=== PATIENT | male | born 1995 | race African-American/Black ===

== ENCOUNTER 2024-04-28 14:52 | Inpatient (IN) | payer OTHER ==
[~2024-04-28 14:52] MED LIST: Iopamidol-370 76% 500 ML MDV (1 ML CHARGE) ONE
[2024-04-28 16:09] LABS: Hematocrit 43.3 % (42.0-52.0); Mean Corpuscular HGB CONC 34.6 g/dL (32.0-36.0); Mean Corpuscular Hemoglobin 31.5 pg (27.0-31.0); Platelet Count 183 10x3/uL (130-400); RBC Distribution Width 13.8 % (11.5-14.5); Red Blood Cell (RBC) Count 4.76 mill/uL (4.70-6.10)
[2024-04-28 16:16] LABS: ALT (SGPT) 7 U/L (8-55); AST (SGOT) 14 U/L (5-34); Albumin 4.6 g/dL (3.5-5.0); Alkaline Phosphatase 68 U/L (40-110); Anion Gap 15 mmol/L (10-20); BUN (Urea Nitrogen) 8 mg/dL (8.9-20.6); Bilirubin, Total 1.5 mg/dL (0.2-1.2); Calc. Creatinine Clearance 0 mL/min (70-130); Calcium 9.8 mg/dL (7.8-10.44); Carbon Dioxide 25 mmol/L (22-29); Chloride 105 mmol/L (98-107); Estimated GFR 121; Globulin 3.5 g/dL (2.4-3.5); Glucose 90 mg/dL (70-105); Lipase 17 U/L (8-78); Potassium 4.5 mmol/L (3.5-5.1); Protein, Total 8.1 g/dL (6.0-8.3); Sodium 140 mmol/L (136-145)
[2024-04-28 16:46] LABS: Band 4 % (5-11); Lymphocytes 3 % (21-51); Monocytes 4 % (0-10); Neutrophil 88 % (42-75); Ovalocytes SLIGHT = 2-5 cells HPF (0-1); Platelet Adequacy Comment Platelets Normal; Reactive Lymphocytes 1 % (0-10); Target Cells SLIGHT = 2-5 cells HPF (0-1)
[2024-04-28] MEDS ORDERED: Acetaminophen 500 MG TAB ONE (17:12)
[2024-04-28] MEDS ORDERED: Ketorolac Tromethamine 30 MG (1 mL) VIAL ONE (17:12)
[2024-04-28] MEDS ORDERED: Ondansetron ODT 4 MG TAB ONE (17:13)
[2024-04-28 17:37] LABS: Troponin I Less than 0.010 ng/mL (< 0.028)
[2024-04-28] MEDS ORDERED: Acetaminophen 325 MG TAB PO PRN (20:22)
[2024-04-28] MEDS ORDERED: Ondansetron PF 4 MG/2 ML Vial IVP PRN (20:22)
[2024-04-28] MEDS ORDERED: Glucagon 1 MG/ML KIT IM PRN (20:22)
[2024-04-28] MEDS ORDERED: Dextrose 50% Abboject 50 ML SYRINGE SLOW IVP PRN (20:22)
[2024-04-28] MEDS ORDERED: Dextrose 5% in Water 1,000 ML IV PRN (20:22)
[2024-04-28] MEDS ORDERED: Sodium Chloride 0.9% 100 ML ONE (21:06)
[2024-04-28] MEDS ORDERED: Piperacillin/Tazobactam 4.5 GM VIAL ONE (21:06)
[2024-04-28] MEDS ORDERED: Piperacillin/Tazobactam 2.25 GM in Sodium Chloride 0.9% 100 ML IVPB SCH (22:00)
[2024-04-28] MEDS: Sodium Chloride 0.9% 1,000 ML IV SCH (22:02)
[2024-04-29] MEDS ORDERED: FLU (Fluarix Triv) TS24-25(6MOS UP)/PF 45 MCG/0.5 ML Syringe IM ONE (00:30)
[2024-04-29] MEDS: Piperacillin/Tazobactam 3.375 GM in Sodium Chloride 0.9% 100 ML IVPB SCH (02:07)
[2024-04-29 05:10] LABS: #Basophils 0.07 10x3/uL (0.0-0.2); %Basophils 0.7 % (0.0-1.0); %Eosinophils 0.9 % (0.0-10.0); %Lymphocytes 15.8 % (21.0-51.0); %Monocytes 8.3 % (0.0-10.0); Hematocrit 41.1 % (42.0-52.0); Hemoglobin 13.5 g/dL (14.0-18.0); Mean Corpuscular HGB CONC 32.8 g/dL (32.0-36.0); Mean Corpuscular Hemoglobin 31.4 pg (27.0-31.0); Mean Corpuscular Volume 95.6 fL (78.0-98.0); Mean Platelet Volume 13.7 fL (7.4-10.4); Platelet Count 163 10x3/uL (130-400); RBC Distribution Width 14.5 % (11.5-14.5)
[2024-04-29 05:25] LABS: ALT (SGPT) 6 U/L (8-55); AST (SGOT) 11 U/L (5-34); Albumin 3.6 g/dL (3.5-5.0); Alkaline Phosphatase 55 U/L (40-110); Anion Gap 10 mmol/L (10-20); BUN (Urea Nitrogen) 11 mg/dL (8.9-20.6); Bilirubin, Total 1.6 mg/dL (0.2-1.2); Calc. Creatinine Clearance 116 mL/min (70-130); Calcium 8.9 mg/dL (7.8-10.44); Carbon Dioxide 27 mmol/L (22-29); Chloride 109 mmol/L (98-107); Estimated GFR 120; Glucose 88 mg/dL (70-105); Potassium 3.9 mmol/L (3.5-5.1); Protein, Total 6.6 g/dL (6.0-8.3); Sodium 142 mmol/L (136-145)
[2024-04-30 05:23] LABS: #Basophils 0.06 10x3/uL (0.0-0.2); %Basophils 0.8 % (0.0-1.0); %Eosinophils 1.9 % (0.0-10.0); %Lymphocytes 29.7 % (21.0-51.0); %Neutrophils 59.3 % (42.0-75.0); Hematocrit 39.4 % (42.0-52.0); Mean Corpuscular Hemoglobin 31.1 pg (27.0-31.0); Mean Corpuscular Volume 94.3 fL (78.0-98.0); Mean Platelet Volume 13.5 fL (7.4-10.4); Platelet Count 153 10x3/uL (130-400); RBC Distribution Width 14.3 % (11.5-14.5); Red Blood Cell (RBC) Count 4.18 mill/uL (4.70-6.10)
[2024-04-30 05:26] LABS: ALT (SGPT) 5 U/L (8-55); AST (SGOT) 11 U/L (5-34); Albumin 3.5 g/dL (3.5-5.0); Alkaline Phosphatase 48 U/L (40-110); Anion Gap 11 mmol/L (10-20); BUN (Urea Nitrogen) 7 mg/dL (8.9-20.6); Bilirubin, Total 2.3 mg/dL (0.2-1.2); Calc. Creatinine Clearance 97 mL/min (70-130); Calcium 8.6 mg/dL (7.8-10.44); Carbon Dioxide 26 mmol/L (22-29); Chloride 108 mmol/L (98-107); Estimated GFR 99; Globulin 2.9 g/dL (2.4-3.5); Glucose 76 mg/dL (70-105); Potassium 3.8 mmol/L (3.5-5.1); Protein, Total 6.4 g/dL (6.0-8.3); Sodium 141 mmol/L (136-145)
[2024-04-30 08:30] VITALS: BMI 25.3
[2024-04-30] MEDS ORDERED: EPINEPHrine 1 MG/ML VIAL ONE (13:03)
[2024-04-30] MEDS ORDERED: Bupivacaine 0.25% HCL 30 ML VIAL ONE (13:04)
[2024-04-30] MEDS ORDERED: Lidocaine 1% PF 5 ML VIAL ONE (13:18)
[2024-04-30] MEDS ORDERED: PROPOFOL 20 ML ONE (13:18)
[2024-04-30] MEDS ORDERED: fentaNYL PF 100 MCG/2 ML SYRINGE ONE (13:18)
[2024-04-30] MEDS ORDERED: Rocuronium Bromide 10 MG/ML (10ML VIAL) ONE (13:18)
[2024-04-30] MEDS ORDERED: Ondansetron PF 4 MG/2 ML Vial ONE (13:19)
[2024-04-30] MEDS ORDERED: Dexamethasone 20 MG/5 ML VIAL ONE (13:19)
[2024-04-30] MEDS ORDERED: HYDROmorphone 0.5 MG/0.5 ML SYRINGE ONE (13:21)
[2024-04-30] MEDS ORDERED: SUGAMMADEX SODIUM 200 MG/2 ML VIAL ONE (13:21)
[2024-04-30] MEDS ORDERED: SUCCINYLCHOLINE/SOD CL,ISO/PF 200 MG/10 ML SYRINGE FS ONE (14:29)
[2024-04-30] MEDS ORDERED: Glucagon 1 MG/ML KIT IM PRN (15:26)
[2024-04-30] MEDS ORDERED: HYDROcodone/Acetaminophen 10/325 mg Tablet PO PRN (15:26)
[2024-04-30] MEDS ORDERED: Dextrose 5% in Water 1,000 ML IV PRN (15:26)
[2024-04-30] MEDS ORDERED: Calcium Carbonate 500 MG ChewTAB PO PRN (15:26)
[2024-04-30] MEDS ORDERED: Ondansetron PF 4 MG/2 ML Vial IVP PRN ×2 (15:26→15:28)
[2024-04-30] MEDS ORDERED: Ipratropium/Albuterol 3 ML NEB NEB PRN (15:26)
[2024-04-30] MEDS ORDERED: Dextrose 50% Abboject 50 ML SYRINGE SLOW IVP PRN (15:26)
[2024-04-30] MEDS ORDERED: Promethazine HCl 25 MG/ML VIAL IM PRN (15:30)
[2024-04-30] MEDS: D5 1/2 NS w/20 mEq KCL 1,000 ML IV SCH (16:27)
[2024-04-30] MEDS: traMADol HCl 50 MG TAB PO PRN (16:27)
[2024-04-30] MEDS: Ketorolac Tromethamine 30 MG (1 mL) VIAL IVP SCH (16:28)
[2024-04-30] MEDS: Famotidine 20 MG TAB PO SCH (23:44)
[2024-05-01] MEDS: Enoxaparin 40 MG (0.4 mL) SYRINGE SC SCH (08:24)
[2024-05-01 09:43] LABS: ALT (SGPT) 26 U/L (8-55); AST (SGOT) 30 U/L (5-34); Albumin 3.3 g/dL (3.5-5.0); Alkaline Phosphatase 49 U/L (40-110); Anion Gap 11 mmol/L (10-20); BUN (Urea Nitrogen) 5 mg/dL (8.9-20.6); Bilirubin, Total 1.5 mg/dL (0.2-1.2); Calc. Creatinine Clearance 106 mL/min (70-130); Calcium 8.7 mg/dL (7.8-10.44); Carbon Dioxide 24 mmol/L (22-29); Chloride 107 mmol/L (98-107); Estimated GFR 112; Globulin 3.3 g/dL (2.4-3.5); Glucose 150 mg/dL (70-105); Potassium 3.4 mmol/L (3.5-5.1); Protein, Total 6.6 g/dL (6.0-8.3); Sodium 139 mmol/L (136-145)
[2024-05-01 09:44] LABS: Hematocrit 39.5 % (42.0-52.0); Mean Corpuscular HGB CONC 32.9 g/dL (32.0-36.0); Mean Corpuscular Hemoglobin 31.2 pg (27.0-31.0); Mean Corpuscular Volume 94.7 fL (78.0-98.0); Mean Platelet Volume 13.4 fL (7.4-10.4); Platelet Count 157 10x3/uL (130-400); RBC Distribution Width 14.1 % (11.5-14.5); Red Blood Cell (RBC) Count 4.17 mill/uL (4.70-6.10)
[2024-05-01 10:17] LABS: Anisocytosis MARKED = >30 cells HPF (0-5); Band 2 % (5-11); Lymphocytes 4 % (21-51); Macrocytosis MODERATE=16-30 cells HPF (0-5); Monocytes 3 % (0-10); Neutrophil 91 % (42-75); Platelet Adequacy Comment Platelets Normal; Polychromasia SLIGHT = 2-3 cells HPF (0-2)
[2024-05-01 13:17] VITALS: BP 119/72; TEMP 97.9
== END 2024-05-01 15:43 | DRG 419 ==
LOC: EEVIPCON 14:52 → ERS 14:52 → SURG B 21:48 → OBSVTOIN 21:48
PROVIDERS: ADMIT Surgery; ATTEND Surgery
PROC: 0FT44ZZ Resection of Gallbladder, Percutaneous Endoscopic Approach (ICD-10-PCS; principal; 2024-04-30)
DX: K81.0 Acute cholecystitis (principal)
CPT/HCPCS: 36415; 71045; 74177; 76705; 80053; 83690; 84484; 85025; 88304; 93005; 96374; 96375; C1889; J0171; J0665; J1100; J1650; J1885; J2405; J2543; J2704; J3480; J7030; Q0162; Q9967